=== PATIENT | female | born 1985 | race Caucasian/White ===

== ENCOUNTER 2018-07-12 20:47 | Emergency (ER) | payer OTHER ==
[~2018-07-12] VITALS: Ht 175.3 cm; Wt 72.6 kg
[~2018-07-12 20:47] MED LIST: CLONIDINE HCL0.1 MG PO; GABAPENTIN100 M2 PO
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
[2018-07-12 22:42] VITALS: BP 110/62
== END 2018-07-12 22:49 ==
LOC: ERH 20:47
DX: S51.812A Laceration without foreign body of left forearm, initial encounter (principal); J45.909 Unspecified asthma, uncomplicated; F17.210 Nicotine dependence, cigarettes, uncomplicated; X78.9XXA Intentional self-harm by unspecified sharp object, initial encounter
CPT/HCPCS: 80307; 81025; G0480; J2001